=== PATIENT | male | born 1970 | race Caucasian/White ===

== ENCOUNTER → 2018-06-26 09:18 | Outpatient (CLI) | payer BC, SELFPAY ==
[2018-06-26 09:28] LABS: Basophils % 0.4 % (0.1-2.0); Eosinophils # 0.1 K/mm3 (0.0-0.4); Eosinophils % 5.6 % (0.1-12.0); Hematocrit 40.2 % (42.0-52.0); Hemoglobin 13.1 g/dL (14.1-18.0); Lymphocytes # 0.4 K/mm3 (0.7-4.5); Mean Corpuscular HGB Conc 32.6 g/dL (31.8-35.4); Mean Corpuscular Volume 95.2 fl (80-94); Mean Platelet Volume 8.8 fl (7.4-10.4); Monocytes # 0.1 K/mm3 (0.1-1.0); Monocytes % 4.8 % (1.7-9.3); Neutrophils # 1.7 K/mm3 (1.8-7.8); Neutrophils % 71.1 % (37.0-80.0); Platelet Count 80 K/mm3 (142-424); Red Blood Count 4.22 M/mm3 (4.60-6.20); Red Cell Distribution Width 13.3 % (11.5-17.5); White Blood Count 2.4 K/mm3 (4.8-10.8)
[2018-06-26 11:06] LABS: Alanine Aminotransferase 15 U/L (12-78); Albumin Level 3.5 gm/dL (3.4-5.0); Albumin/Globulin Ratio 1.1 (1.1-1.8); Alkaline Phosphatase 106 U/L (46-116); Anion Gap 14.1 mEq/L (5-15); Aspartate Amino Transferase 24 U/L (15-37); Bilirubin,Total 1.1 mg/dL (0.2-1.0); Blood Urea Nitrogen 8 mg/dL (7-18); Calcium 8.5 mg/dL (8.5-10.1); Carbon Dioxide 27 mmol/L (21.0-32.0); Chloride 106 mmol/L (98-107); Creatinine,Serum 1.02 mg/dL (0.70-1.30); Estimated Glomerular Filt Rate 78 ml/min (>60); GFR (African American) 94 ML/MIN (>60); Globulin 3.1 gm/dl (1.3-3.2); Glucose 84 mg/dL (74-106); Potassium 4.1 mmoL/L (3.5-5.1); Sodium 143 mmol/L (136-145); Total Protein,Serum 6.6 gm/dL (6.4-8.2)
== END ==
PROVIDERS: Visit Provider Internal Medicine Medical Oncology
DX: D72.819 Decreased white blood cell count, unspecified (principal)
CPT/HCPCS: 36415; 80053; 85025

== ENCOUNTER → 2018-07-08 09:28 | Outpatient (CLI) | payer BC, SELFPAY ==
--- NOTE | 2018-07-08 09:31 | US_ITS ---
US abdomen complete HISTORY: ITS.REASON: liver cirrhosis,low wbc ORDERING PHYSICIAN: Nayeli Roberts MD PATIENT AGE: 47 years COMPARISON: None FINDINGS: PANCREAS:Unremarkable. No obvious mass or abnormal fluid collection. No ductal dilatation LIVER:There is irregularity of the liver surface with coarse hepatic echogenicity consistent with cirrhosis. Portal vein is upper limits of normal at 13 mm. There is appropriate direction of blood flow within the portal vein. RIGHT KIDNEY:Unremarkable. Normal size and echogenicity. No hydronephrosis LEFT KIDNEY:Unremarkable. No hydronephrosis. Normal size and echogenicity. GALLBLADDER:There are multiple gallstones present. No gallbladder wall thickening, pericholecystic fluid, or biliary dilatation. Common bile duct is 6 mm which is upper limits of normal. AORTA:No evidence of aneurysmal dilatation. SPLEEN:The spleen is enlarged at 17 cm ASCITES:None demonstrated. IMPRESSION: 1. Cholelithiasis. 2. Cirrhosis with splenomegaly
== END ==
PROVIDERS: PCP Emergency Medicine; Visit Provider Internal Medicine Medical Oncology
DX: K74.60 Unspecified cirrhosis of liver (principal)
CPT/HCPCS: 76700

== ENCOUNTER 2022-08-16 16:41 | Emergency (ER) | payer BC, SELFPAY ==
[2022-08-16 16:42] VITALS: BP 135/73; PULSE 74; RESP 17; TEMP 36.9; O2SAT 96; BMI 28.7
--- NOTE | 2022-08-16 16:54 | PC.NURSE ---
Patient's state guardian is Brandy Lares [phone]
--- NOTE | 2022-08-16 17:46 | PC.NURSE ---
PT AMBULATED UP TO BR
--- NOTE | 2022-08-16 17:57 | CT_ITS ---
PROCEDURE INFORMATION: Exam: CT Lumbar Spine With Contrast Exam date and time: 08/16/2022 7:15 PM Age: 51 years old Clinical indication: Low back pain TECHNIQUE: Imaging protocol: Computed tomography of the lumbar spine with contrast. Radiation optimization: All CT scans at this facility use at least one of these dose optimization techniques: automated exposure control; mA and/or kV adjustment per patient size (includes targeted exams where dose is matched to clinical indication); or iterative reconstruction. Contrast material: ISOVUE; Contrast volume: 75 ml; Contrast route: IV; Other protocol: This patient has received [address] and 0 known cardiac nuclear medicine studies in the 12 months prior to the current study. COMPARISON: No relevant prior studies available. FINDINGS: Bones/joints: Moderate multilevel degenerative disc changes and facet arthropathy noted throughout the lumbar spine. Disc bulge and uncovertebral spurring produces moderate central canal and bilateral neural foraminal narrowing at the lumbosacral junction. No vertebral body compression or acute fracture evident. Soft tissues: Unremarkable. IMPRESSION: Degenerative changes of the lumbar spine as described. No evidence of acute injury.
--- NOTE | 2022-08-16 17:57 | CT_ITS ---
PROCEDURE INFORMATION: Exam: CT Abdomen And Pelvis Without Contrast Exam date and time: 08/16/2022 7:19 PM Age: 51 years old Clinical indication: Abdominal pain; Other: Kidney area; Additional info: Kidneys hurt TECHNIQUE: Imaging protocol: Computed tomography of the abdomen and pelvis without contrast. Radiation optimization: All CT scans at this facility use at least one of these dose optimization techniques: automated exposure control; mA and/or kV adjustment per patient size (includes targeted exams where dose is matched to clinical indication); or iterative reconstruction. Other protocol: This patient has received [address] and 0 known cardiac nuclear medicine studies in the 12 months prior to the current study. COMPARISON: CT LUMBAR SPINE W CON 08/16/2022 7:15 PM FINDINGS: Liver: There is a diffusely sclerotic appearance of the liver. No focal hepatic abnormality seen. Gallbladder and bile ducts: Normal. No calcified stones. No ductal dilation. Pancreas: Normal. No ductal dilation. Spleen: The spleen is enlarged, measuring 18.5 cm in greatest diameter. Adrenal glands: Normal. No mass. Kidneys and ureters: Normal. No hydronephrosis. Stomach and bowel: Unremarkable. No obstruction. No mucosal thickening. Appendix: No evidence of appendicitis. Intraperitoneal space: Unremarkable. No free air. No significant fluid collection. Vasculature: Unremarkable. No abdominal aortic aneurysm. Lymph nodes: Unremarkable. No enlarged lymph nodes. Urinary bladder: Unremarkable as visualized. Reproductive: Unremarkable as visualized. Bones/joints: Moderate degenerative changes noted in the lumbosacral spine producing moderate to severe narrowing of the bilateral L5 neural exit foramina. Mild degenerative changes noted at the other disc levels in the lower spine Soft tissues: Unremarkable. IMPRESSION: Cirrhotic appearance of the liver with significant splenomegaly. No ascites. Other incidental findings as noted. No acute abnormality evident in the abdomen or pelvis.
--- NOTE | 2022-08-16 18:00 | HMH.EDGENADL ---
Discharge Plan Disposition Patient Disposition: Home, Self-Care Condition: Good Prescriptions Prescriptions: No Action lactulose [Constulose] 10 gram/15 mL solution 10 g PO DAILY bupropion HCl [Wellbutrin XL] 150 mg tablet extended release 24 hr 150 mg PO DAILY ferrous sulfate 325 mg (65 mg iron) tablet 325 mg PO DAILY levothyroxine 100 mcg capsule 100 mcg PO DAILY lithium carbonate 300 mg capsule 300 mg PO TID omeprazole 20 mg capsule,delayed release(DR/EC) 20 mg PO DAILY paliperidone [Invega] 3 mg tablet extended release 24hr 3 mg PO DAILY risperidone [Risperdal] 3 mg tablet 3 mg PO DAILY sertraline [Zoloft] 100 mg tablet 100 mg PO DAILY famotidine 20 mg tablet 20 mg PO DAILY Activity Restrictions/Add. Instructions Additional Instructions/Restrictions: Tylenol 3 take-home pack as needed for pain. Additional instructions for BACK PAIN: See your physician as soon as possible for further evaluation. Return immediately if back pain becomes intolerable, or if fever, numbness or weakness of your legs, loss of control of your bowels or bladder. Clinical Impressions Clinical Impression: Low back pain Instructions Patient Instructions: DI for Low Back Pain Discharge ED Provider: Allan Sanchez General Adult HPI General Chief complaint: Back Pain/Injury Stated complaint: LBP Time Seen by Provider: 08/16/22 17:49 Mode of Arrival: EMS Source of Information: Patient and EMS Limitations: No Limitations Description of Symptoms (Recalled from ER Triage Doc. by RN): 51 M presents via EMS from [facility] for complaints of non-traumatic low back pain that radiates down both of his lower extremities. Patient denies loss of bowel and bladder. Denies painful urination, fever, chills. History of Present Illness HPI narrative: The patient is brought in by ambulance from [facility]. He complains of a 1 week history of lower back pain. He points to the lower lumbar paraspinous area bilaterally states in my kidneys . Denies injury or falls. States that his legs feel weak, states that he tripped going up the stairs. However denies numbness to the groin or legs and no loss of bowel or bladder control. Denies urinary symptoms such as dysuria or frequency. Denies fever. Denies URI symptoms. Denies vomiting or diarrhea. Denies previous back problems. States he has a history of cirrhosis. Related Data Home Medications Medication Instructions Recorded Confirmed bupropion HCl 150 mg 24 hr tablet, 150 mg PO DAILY Mood 06/26/18 08/16/22 extended release (Wellbutrin XL) ferrous sulfate 325 mg (65 mg 325 mg PO DAILY Supplement 06/26/18 08/16/22 iron) tablet lactulose 10 gram/15 mL oral 10 g PO DAILY Liver 06/26/18 08/16/22 solution (Constulose) levothyroxine 100 mcg capsule 100 mcg PO DAILY Hypothyroidism 06/26/18 08/16/22 lithium carbonate 300 mg capsule 300 mg PO TID Mood 06/26/18 08/16/22 omeprazole 20 mg capsule,delayed 20 mg PO DAILY GERD 06/26/18 08/16/22 release paliperidone 3 mg tablet,extended 3 mg PO DAILY Mood 06/26/18 08/16/22 release 24 hr (Invega) risperidone 3 mg tablet (Risperdal) 3 mg PO DAILY Mood 06/26/18 08/16/22 sertraline 100 mg tablet (Zoloft) 100 mg PO DAILY Mood 06/26/18 08/16/22 famotidine 20 mg tablet 20 mg PO DAILY GERD 08/16/22 08/16/22 Allergies Allergy/AdvReac Type Severity Reaction Status Date / Time Penicillins Allergy Mild Verified 05/05/21 09:00 [facility] Disclaimer: The information contained in this section may have been updated after the patient was seen, as this information can be updated by other users. Social History Smoking Status: Never smoker alcohol intake: former substance use type: denies use current occupational status: previously employed Travel in the last 8 weeks: None housing: assisted living facility ROS Obtained: Yes Systems reviewed as appropriate & no
[2022-08-16 18:08] LABS: Microscopic, Urine URINE MICROSCOPIC (MICROSCOPIC)
[2022-08-16 18:13] LABS: Appearance,Urine CLEAR (Clear); Bilirubin,Urine Negative (Negative); Blood, Urine Negative (Negative); Color,Urine YELLOW (Yellow); Glucose,Urine (UA) Negative (Negative); Ketones,Urine Negative (Negative); Leukocyte Esterase,Urine Negative (Negative); Nitrate,Urine Negative (Negative); Protein,Urine Negative (Negative); Specific Gravity, Urine 1.015 (1.005-1.030)
[2022-08-16 18:33] LABS: Eosinophils # 0.1 K/mm3 (0.0-0.4); Eosinophils % 4.5 % (0.1-12.0); Hematocrit 37.1 % (42.0-52.0); Hemoglobin 12.6 g/dL (14.1-18.0); Lymphocytes # 0.3 K/mm3 (0.7-4.5); Lymphocytes % 10.5 % (10-50); Mean Corpuscular HGB Conc 33.9 g/dL (31.8-35.4); Mean Corpuscular Hemoglobin 32.6 pg (27.0-31.2); Mean Corpuscular Volume 96.2 fl (80-94); Mean Platelet Volume 9.3 fl (7.4-10.4); Monocytes # 0.2 K/mm3 (0.1-1.0); Monocytes % 6.1 % (1.7-9.3); Neutrophils % 77.9 % (37.0-80.0); Platelet Count 72 K/mm3 (142-424); Red Blood Count 3.86 M/mm3 (4.60-6.20); Red Cell Distribution Width 14.4 % (11.5-17.5); White Blood Count 2.5 K/mm3 (4.8-10.8)
[2022-08-16 18:34] LABS: Bacteria,Urine Trace /lpf; Squamous Epithelial Cell,Urine Occasional #/hpf (0-5); WBC,Urine Occasional #/hpf (0-3)
[2022-08-16 18:44] LABS: INR 1.16 (0.9-1.1); Prothrombin Time 12.4 seconds (10.1-12.5)
[2022-08-16 18:45] LABS: Chloride 109 mmol/L (98-107)
[2022-08-16 18:46] LABS: Potassium 3.7 mmoL/L (3.5-5.1); Sodium 138 mmol/L (136-145)
[2022-08-16 18:48] LABS: Alanine Aminotransferase 22 U/L (12-78); Albumin Level 3.3 g/dl (3.5-5.0); Alkaline Phosphatase 103 U/L (38-126); Aspartate Amino Transferase 71 U/L (17-59); Bilirubin,Total 0.9 mg/dl (0.2-1.3); Blood Urea Nitrogen 8 mg/dl (9-20); Creatinine Clearance Estimated 110 mL/min (50-200); Estimated Glomerular Filt Rate 78 ml/min (>60); GFR (African American) 95 ML/MIN (>60)
[2022-08-16 18:49] LABS: Albumin/Globulin Ratio 1.2 (1.1-1.8); Anion Gap 9.7 mEq/L (5-15); Calcium 7.9 mg/dl (8.4-10.2); Carbon Dioxide 23 mmol/L (22.0-30.0); Globulin 2.8 g/dL (1.3-3.2); Glucose 87 mg/dl (74-100); Total Protein,Serum 6.1 g/dl (6.3-8.2)
[2022-08-16 18:54] LABS: C-Reactive Protein 0.4 mg/L (0-4)
[2022-08-16 19:01] LABS: Erythrocyte Sedimentation Rate 17 mm/hr (0-20)
[2022-08-16 19:02] VITALS: BP 134/72; PULSE 76; O2SAT 95
[2022-08-16 19:12] LABS: Coronavirus 19, PCR Not Detected (NotDetected); Influenza A, PCR Not Detected (NotDetected); Influenza B, PCR Not Detected (NotDetected)
--- NOTE | 2022-08-16 19:54 | PC.NURSE ---
Pt ambulated independently to the bathroom at this time
--- NOTE | 2022-08-16 20:52 | PC.NURSE ---
sil called for an update. Pt not d/c at this time
[2022-08-16 22:21] VITALS: BP 126/70; PULSE 71; RESP 17; TEMP 36.6; O2SAT 96
--- NOTE | 2022-08-16 22:22 | PC.NURSE ---
sil called for pickup
== END 2022-08-16 22:55 | disposition home or self-care (01) ==
PROVIDERS: Emergency Provider Emergency Medicine
DX: M54.50 Low back pain, unspecified (principal); Z20.822 Contact with and (suspected) exposure to COVID-19
CPT/HCPCS: 72132; 74176; 80053; 81001; 85025; 85610; 85651; 86140; 99285; C9803; Q9967; U0003; U0005

== ENCOUNTER 2022-12-30 14:34 | Observation (INO) | payer BC, SELFPAY ==
[2022-12-30 14:34] VITALS: BP 142/77; PULSE 100; RESP 18; TEMP 37.6; O2SAT 98; BMI 26.5
--- NOTE | 2022-12-30 14:34 | PC.NURSE ---
DR GENAO AT BEDSIDE
--- NOTE | 2022-12-30 14:36 | XR_ITS ---
PROCEDURE INFORMATION: Exam: XR Chest Exam date and time: 12/30/2022 2:39 PM Age: 52 years old Clinical indication: Dyspnea; Additional info: Dyspnea, covid+, cp TECHNIQUE: Imaging protocol: Radiologic exam of the chest. Views: 1 view. COMPARISON: None FINDINGS: Lungs: Unremarkable. No consolidation. Pleural spaces: Unremarkable. No pleural effusion. No pneumothorax. Heart/Mediastinum: Unremarkable. No cardiomegaly. Bones/joints: Unremarkable. IMPRESSION: No acute findings.
--- NOTE | 2022-12-30 14:40 | HMH.EDWEAK ---
Discharge Plan Disposition Patient Disposition: Admitted Chief Complaint: Weakness Prescriptions Prescriptions: No Action lactulose [Constulose] 10 gram/15 mL solution 10 g PO DAILY bupropion HCl [Wellbutrin XL] 150 mg tablet extended release 24 hr 150 mg PO DAILY ferrous sulfate 325 mg (65 mg iron) tablet 325 mg PO DAILY levothyroxine 100 mcg capsule 100 mcg PO DAILY lithium carbonate 300 mg capsule 300 mg PO TID omeprazole 20 mg capsule,delayed release(DR/EC) 20 mg PO DAILY paliperidone [Invega] 3 mg tablet extended release 24hr 3 mg PO DAILY risperidone [Risperdal] 3 mg tablet 3 mg PO DAILY sertraline [Zoloft] 100 mg tablet 100 mg PO DAILY famotidine 20 mg tablet 20 mg PO DAILY Referrals Follow up/Referrals: Provider,Referral, MD [Primary Care Provider] - See instructions Clinical Impressions Clinical Impression: Weakness generalized, Abnormal finding on liver function, Chronic liver disease and cirrhosis Discharge ED Provider: Eufemia Phipps HPI General Chief complaint: Weakness Stated complaint: CAN'T WALK Time Seen by Provider: 12/30/22 14:36 Mode of Arrival: EMS Source of Information: Patient History of Present Illness HPI Narrative: The patient presents to the emergency department via ambulance complaining of a 3-week history of progressively worsening weakness. He states that over the last 2 days the weakness has gotten particularly bad. He denies any vomiting, nausea, diarrhea, fever. He also denies cough. He states that he has cirrhosis. Related Data Home Medications Medication Instructions Recorded Confirmed bupropion HCl 150 mg 24 hr tablet, 150 mg PO DAILY Mood 06/26/18 12/30/22 extended release (Wellbutrin XL) ferrous sulfate 325 mg (65 mg 325 mg PO DAILY Supplement 06/26/18 12/30/22 iron) tablet lactulose 10 gram/15 mL oral 10 g PO DAILY Liver 06/26/18 12/30/22 solution (Constulose) levothyroxine 100 mcg capsule 100 mcg PO DAILY Hypothyroidism 06/26/18 12/30/22 lithium carbonate 300 mg capsule 300 mg PO TID Mood 06/26/18 12/30/22 omeprazole 20 mg capsule,delayed 20 mg PO DAILY GERD 06/26/18 08/16/22 release paliperidone 3 mg tablet,extended 3 mg PO DAILY Mood 12/27/18 07/02/23 release 24 hr (Invega) risperidone 3 mg tablet (Risperdal) 3 mg PO DAILY Mood 06/26/18 12/30/22 sertraline 100 mg tablet (Zoloft) 100 mg PO DAILY Mood 06/26/18 12/30/22 famotidine 20 mg tablet 20 mg PO DAILY GERD 08/16/22 12/30/22 Allergies Allergy/AdvReac Type Severity Reaction Status Date / Time Penicillins Allergy Mild Verified 05/05/21 09:00 [facility] Disclaimer: The information contained in this section may have been updated after the patient was seen, as this information can be updated by other users. Social History Smoking Status: Never smoker alcohol intake: former substance use type: denies use current occupational status: previously employed Travel in the last 8 weeks: None housing: assisted living facility ROS Obtained: Yes All systems reviewed & no additional complaints except as documented Physical Exam General General appearance: alert and in no apparent distress Head Head exam: atraumatic Eye Eye exam: Present normal appearance; Absent scleral icterus ENT ENT exam: Present normal exam and normal oropharynx Neck Neck exam: Present normal inspection and full ROM; Absent tenderness or meningismus Chest Chest inspection: Present normal inspection and symmetric chest wall rise; Absent tenderness Respiratory Respiratory exam: Present normal lung sounds bilaterally; Absent respiratory distress or accessory muscle use Cardiovascular Cardiovascular exam: Present regular rate, normal rhythm and normal heart sounds Abdominal Exam Abdominal exam: Present soft and normal bowel sounds; Absent distention, tenderness, heel tap sign, Rose's sign, Rovsing's sign, tenderness at McBurney's
[2022-12-30 14:49] LABS: Microscopic, Urine URINE MICROSCOPIC (MICROSCOPIC)
[2022-12-30 14:51] LABS: Appearance,Urine CLEAR (Clear); Blood, Urine 3+ (Negative); Color,Urine YELLOW (Yellow); Glucose,Urine (UA) Negative (Negative); Ketones,Urine 3+ (Negative); Leukocyte Esterase,Urine Negative (Negative); Nitrate,Urine Negative (Negative); Protein,Urine 1+ (Negative); Specific Gravity, Urine >= 1.030 (1.005-1.030)
[2022-12-30 14:51] LABS: Basophils % 0.1 % (0.1-2.0); Eosinophils # 0.1 K/mm3 (0.0-0.4); Hematocrit 35.7 % (42.0-52.0); Hemoglobin 11.4 g/dL (14.1-18.0); Lymphocytes # 0.2 K/mm3 (0.7-4.5); Lymphocytes % 4.2 % (10-50); Mean Corpuscular Hemoglobin 31.4 pg (27.0-31.2); Mean Platelet Volume 9.1 fl (7.4-10.4); Monocytes # 0.1 K/mm3 (0.1-1.0); Monocytes % 2.3 % (1.7-9.3); Neutrophils # 4.4 K/mm3 (1.8-7.8); Neutrophils % 91.4 % (37.0-80.0); Platelet Count 98 K/mm3 (142-424); Red Blood Count 3.64 M/mm3 (4.60-6.20); Red Cell Distribution Width 14.4 % (11.5-17.5); White Blood Count 4.8 K/mm3 (4.8-10.8)
[2022-12-30 14:52] LABS: Chloride 99 mmol/L (98-107); Sodium 134 mmol/L (136-145)
[2022-12-30 14:53] LABS: Potassium 4.1 mmoL/L (3.5-5.1)
[2022-12-30 14:55] LABS: Alanine Aminotransferase 221 U/L (12-78); Albumin/Globulin Ratio 1.1 (1.1-1.8); Alkaline Phosphatase 87 U/L (38-126); Anion Gap 18.1 mEq/L (5-15); Bilirubin,Total 1.5 mg/dl (0.2-1.3); Blood Urea Nitrogen 12 mg/dl (9-20); Carbon Dioxide 21 mmol/L (22.0-30.0); Creatinine Clearance Estimated 167 mL/min (50-200); Estimated Glomerular Filt Rate 140 ml/min (>60); GFR (African American) 170 ML/MIN (>60); Globulin 2.8 g/dL (1.3-3.2); Total Protein,Serum 5.8 g/dl (6.3-8.2)
[2022-12-30 14:56] LABS: Calcium 8.5 mg/dl (8.4-10.2); Glucose 91 mg/dl (74-100)
[2022-12-30 14:57] LABS: Ammonia 38 umol/L (9-30)
[2022-12-30 14:57] LABS: MANUAL DIFFERENTIAL MANUAL DIFFERENTIAL (MANUAL DIFF)
[2022-12-30 14:57] LABS: Bilirubin,Urine 3+ (Negative)
[2022-12-30 15:04] LABS: Bacteria,Urine Trace /lpf; Coarse Granular Casts,Urine Occasional #/lpf (0); WBC,Urine Occasional #/hpf (0-3)
[2022-12-30 15:18] LABS: Eosinophils % 2 % (0-3); Lymphocytes % 3 % (10-50); Neutrophils % 95 % (42-76); Total Cells Counted 100
[2022-12-30 15:19] LABS: Platelet Estimate Marked Decrease; RBC Morphology Normal
[2022-12-30 15:21] LABS: Aspartate Amino Transferase 3046 U/L (17-59)
[2022-12-30 15:59] LABS: Lactic Acid 3.2 mmol/L (0.7-2.1)
--- NOTE | 2022-12-30 16:08 | PC.NURSE ---
PT PROVIDED DRINK AT THIS TIME
--- NOTE | 2022-12-30 17:29 | PC.NURSE ---
ATTEMPTED TO AMBULATE PT, DID NOT PARTICIPATE. NOTIFIED
--- NOTE | 2022-12-30 18:01 | INFXCTL.NOTE ---
DR GENAO SPEAKING WITH DR ORELLANA FOR ADMISSION
[2022-12-30 18:11] LABS: Coronavirus 19, PCR Not Detected (NotDetected); Influenza A, PCR Not Detected (NotDetected); Influenza B, PCR Not Detected (NotDetected)
--- NOTE | 2022-12-30 19:28 | PC.NURSE ---
PATIENT ADMITTED TO [facility] TO SERVICE OF HOSPITALIST WITH ADMITTING DX OF DECREASED MOBILITY AND ELEVATED LIVER ENZYMES.
[2022-12-30 19:39] LABS: Reflex Lactic Add Lactic Reflex
[2022-12-30 20:00] VITALS: BP 146/65; PULSE 84; RESP 18; TEMP 37.6; O2SAT 94; BMI 27.3
--- NOTE | 2022-12-30 20:04 | PC.NURSE ---
PT ARRIVED TO FLOOR AT THIS TIME
[2022-12-30 20:06] VITALS: BP 146/65; PULSE 94; RESP 18; TEMP 37.2; O2SAT 96
--- NOTE | 2022-12-30 21:32 | PC.NURSE ---
right upper back left upper back left shoulder left thigh left hip
[2022-12-30 21:43] LABS: INR 1.08 (0.9-1.1); Prothrombin Time 11.6 seconds (10.1-12.5)
[2022-12-30 21:44] LABS: Amphetamine/Metha Screen,Urine Negative ng/ml (<1000); Barbiturates Screen,Urine Negative ng/ml (<200)
[2022-12-30 21:45] LABS: Benzodiazepines Screen,Urine Negative ng/ml (<200); Cannabinoid Screen,Urine Negative ng/ml (<50)
[2022-12-30 21:46] LABS: Cocaine Screen,Urine Negative ng/ml (<300)
[2022-12-30 21:47] LABS: Methadone Screen,Urine Negative ng/ml (<300); Opiate Screen,Urine Negative ng/ml (<300)
[2022-12-30 21:48] LABS: Phencyclidine Screen,Urine Negative ng/ml (<25)
[2022-12-30 22:04] LABS: Reflex Lactic (2 hrs) Add Lactic Reflex
--- NOTE | 2022-12-30 22:29 | EXP.HP ---
History of Present Illness *Admission Date: 12/30/22 *Reason for visit:: generalized weakness *History of present illness: This is a 52 yo male, with PMHx of cirrhosis and schizophrenia, hypothyroidism who is a resident of assisted living facility [facility], the patient presented to the emergency department via ambulance complaining of a 3-week history of progressively worsening weakness. He states that over the last 2 days the weakness has worsen. He denies any vomiting, nausea, diarrhea, fever. He also denies cough. He states that he has cirrhosis. He also stated he is being fallen at the facility. Patient with multiple bruises. At the ER finding were consistent with abnormal liver function. chest X-ray negative. Discussed with the ER. Agreed for mission for further work-up and management. [facility] Disclaimer: The information contained in this section may have been updated after the patient was seen, as this information can be updated by other users. Medical History (Updated 12/30/22 @ 22:49 by Justo Maurer APRN) Cirrhosis Hypothyroid Social History Smoking Status: Never smoker alcohol intake: former substance use type: denies use current occupational status: previously employed Travel in the last 8 weeks: None housing: assisted living facility Review of Systems Review of Systems Review of systems:: pertinent systems reviewed and negative unless documented below Meds Home Medications and Allergies Home Medications Medication Instructions Recorded Confirmed Type bupropion HCl 150 mg 24 hr tablet, 150 mg PO DAILY Mood 06/26/18 12/30/22 History extended release (Wellbutrin XL) ferrous sulfate 325 mg (65 mg 325 mg PO DAILY Supplement 06/26/18 12/30/22 History iron) tablet lactulose 10 gram/15 mL oral 20 g PO DAILYP PRN Constipation 06/26/18 12/31/22 History solution (Constulose) lithium carbonate 300 mg capsule 300 mg PO BID Mood 06/26/18 12/31/22 History paliperidone 3 mg tablet,extended 3 mg PO DAILY Mood 06/26/18 12/30/22 History release 24 hr (Invega) risperidone 3 mg tablet (Risperdal) 6 mg PO HS Mood 06/26/18 12/31/22 History sertraline 100 mg tablet (Zoloft) 200 mg PO HS Mood 06/26/18 12/31/22 History famotidine 20 mg tablet 20 mg PO HS Acid Reflux 08/16/22 12/31/22 History levothyroxine 100 mcg tablet 100 mcg PO DAILY THYROID 12/31/22 12/31/22 History New Prescriptions to Start Prescriptions: Allergies Allergy/AdvReac Type Severity Reaction Status Date / Time Penicillins Allergy Mild Verified 05/05/21 09:00 Exam Data for Last 24 hours Vital signs and Labs for Last 24 Hours: Temp Pulse Resp BP Pulse Ox 98.9 F 94 H 18 146/65 H 94 L 12/30/22 20:06 12/30/22 20:06 12/30/22 20:06 12/30/22 20:06 12/30/22 20:00 Laboratory Results - last 24 hr 12/30/22 14:30: WBC 4.8, RBC 3.64 L, Hgb 11.4 L, Hct 35.7 L, MCV 98.0 H, MCH 31.4 H, MCHC 32.0, RDW 14.4, Plt Count 98 L, MPV 9.1, Neut % (Auto) 91.4 H, Lymph % (Auto) 4.2 L, Sunflower % (Auto) 2.3, Eos % (Auto) 2.0, Baso % (Auto) 0.1, Neut # (Auto) 4.4, Lymph # (Auto) 0.2 L, Sunflower # (Auto) 0.1, Eos # (Auto) 0.1, Baso # (Auto) 0.0, Total Counted 100, Neutrophils % (Manual) 95 H, Lymphocytes % (Manual) 3 L, Eosinophils % (Manual) 2, Platelet Estimate Marked decrease, RBC Morphology Normal, PT 11.6, INR 1.08, Sodium 134 L, Potassium 4.1, Chloride 99, Carbon Dioxide 21 L, Anion Gap 18.1 H, BUN 12, Creatinine 0.60 L, Estimated Creat Clear 167, Estimated GFR 140, Est GFR ( Amer) 170, Glucose 91, Calcium 8.5, Total Bilirubin 1.5 H, AST 3046 H*, ALT 221 H, Alkaline Phosphatase 87, Total Protein 5.8 L, Albumin 3.0 L, Globulin 2.8, Albumin/Globulin Ratio 1.1, SARS-CoV-2 (PCR) Not detected, Influenza A Untype (PCR) Not detected, Influenza Type B (PCR) Not detected 07/02/23 14:41: Ammonia 38 H 12/30/22 14:42: Urine Color Yellow, Urine Appearance Clear, Urine pH 6.0, Ur Specific [place] >= 1.030, Urine Protein 1+, Urine Glucose (U
[2022-12-30 23:14] LABS: Lactic Acid Follow up (RFLX 2) 2.6 mmol/L (0.7-2.1)
[2022-12-30 23:55] VITALS: BP 142/70; PULSE 94; RESP 18; TEMP 37.3; O2SAT 98
[2022-12-31 04:00] VITALS: BP 130/62; PULSE 96; RESP 18; TEMP 37.1; O2SAT 96; BMI 27.3
[2022-12-31 06:13] LABS: Alanine Aminotransferase 202 U/L (12-78); Albumin Level 2.6 g/dl (3.5-5.0); Alkaline Phosphatase 77 U/L (38-126); Anion Gap 11.7 mEq/L (5-15); Bilirubin,Total 1.4 mg/dl (0.2-1.3); Blood Urea Nitrogen 11 mg/dl (9-20); Carbon Dioxide 26 mmol/L (22.0-30.0); Chloride 98 mmol/L (98-107); Chol/HDL Ratio 4.6 (1-3.5); Cholesterol 115 mg/dl (140-200); Creatinine Clearance Estimated 173 mL/min (50-200); Estimated Glomerular Filt Rate 140 ml/min (>60); GFR (African American) 170 ML/MIN (>60); Globulin 2.6 g/dL (1.3-3.2); Glucose 85 mg/dl (74-100); HDL Cholesterol 25 mg/dl (40-60); Magnesium 1.7 mg/dl (1.6-2.3); Potassium 3.7 mmoL/L (3.5-5.1); Sodium 132 mmol/L (136-145); Total Protein,Serum 5.2 g/dl (6.3-8.2); Triglycerides 108 mg/dl (30-150); VLDL Cholesterol 22 mg/dL (0-40)
[2022-12-31 06:14] LABS: INR 1.11 (0.9-1.1); Prothrombin Time 11.9 seconds (10.1-12.5)
[2022-12-31 06:24] LABS: Direct LDL Cholesterol 71.17 mg/dL (100-129)
[2022-12-31 06:55] LABS: Basophils % 0.1 % (0.1-2.0); Eosinophils # 0.1 K/mm3 (0.0-0.4); Hematocrit 33.9 % (42.0-52.0); Hemoglobin 10.8 g/dL (14.1-18.0); Lymphocytes # 0.2 K/mm3 (0.7-4.5); Lymphocytes % 5.1 % (10-50); Mean Corpuscular HGB Conc 31.8 g/dL (31.8-35.4); Mean Corpuscular Hemoglobin 31.4 pg (27.0-31.2); Mean Corpuscular Volume 98.6 fl (80-94); Mean Platelet Volume 9.5 fl (7.4-10.4); Monocytes # 0.1 K/mm3 (0.1-1.0); Monocytes % 2.6 % (1.7-9.3); Neutrophils % 88.2 % (37.0-80.0); Platelet Count 78 K/mm3 (142-424); Red Blood Count 3.44 M/mm3 (4.60-6.20); Red Cell Distribution Width 14.4 % (11.5-17.5); White Blood Count 3.4 K/mm3 (4.8-10.8)
[2022-12-31 06:56] LABS: MANUAL DIFFERENTIAL MANUAL DIFFERENTIAL (MANUAL DIFF)
[2022-12-31 06:59] LABS: Aspartate Amino Transferase 2354 U/L (17-59)
--- NOTE | 2022-12-31 07:13 | US_ITS ---
FINAL REPORT CLINICAL HISTORY: weakness, liver eval, cirrhosis COMPARISON: None FINDINGS: Sonographic images of the right upper quadrant were obtained. The pancreas is partially obscured. The liver has a heterogeneous echotexture consistent with history of cirrhosis. No evidence of hepatic mass. There are gallstones in the gallbladder. There is no evidence of biliary ductal dilatation.The common duct measures 4mm. Limited images of the right kidney are unremarkable. IMPRESSION: Cirrhosis. Gallstones. Reviewed, Interpreted and Dictated by Leon Aly III, MD Transcribed by Radha Kemp Authenticated and [facility]
--- NOTE | 2022-12-31 07:31 | P.CONPHA_ITS ---
Pharmacy Intervention Comments: MEDICATION RECONCILIATION COMPLETED ON PATIENT USING MAR FROM [facility]. -SARITA CURRAN, HENNAD
--- NOTE | 2022-12-31 07:31 | HMH.PHAINT1 ---
Pharmacy Intervention Comments: MEDICATION RECONCILIATION COMPLETED ON PATIENT USING MAR FROM [facility]. -SARITA CURRAN, HENNAD
[2022-12-31 08:00] VITALS: BP 147/75; PULSE 95; RESP 16; TEMP 37.4; O2SAT 96
[2022-12-31 08:08] LABS: Lymphocytes % 4 % (10-50); Monocytes % 2 % (2-9); Neutrophils % 94 % (42-76); Platelet Estimate Moderate Decrease; RBC Morphology Normal; Total Cells Counted 100
--- NOTE | 2022-12-31 09:29 | SW/DCPLANNER ---
Addendum entered by [facility] 01/03/23 11:09: Patient will discharge to [facility] level of care today. Addendum entered by [facility] 01/02/23 15:24: Rad[facility]/ [facility] stated that she can accept this patient tomorrow [facility] level of care. I will update Imani clemons/ Eul[place], [facility] and . Addendum entered by [facility] 01/02/23 12:29: Updated facilities list for this patient has been faxed to Imani Esteban ([email or web address]). Addendum entered by [facility] 01/02/23 11:32: Patient information is currently being reviewed at the following facilities: [facility], [facility] and [facility]. Addendum entered by [facility] 01/02/23 11:10: Imani Esteban ([phone]) has confirmed that information can be faxed to [facility] location. Addendum entered by [facility] 01/02/23 11:00: [facility] is not able to accept this patient. Patient information has also been faxed to [facility] in [facility]. Addendum entered by [facility] 01/02/23 09:00: Patient information has also been faxed to Ilya w/ [facility] in [facility]. Addendum entered by Tameka Alonzo RN 01/01/23 09:42: Per Dr. Bhardwaj, patient likely ready for discharge tomorrow. I attempted to contact Hiral @ [facility], but she is not in today due to holiday. No one available for admissions today. CM will reach out again tomorrow. Addendum entered by [facility] 12/31/22 14:10: Zaida w/ [facility] is not able to accept this patient. Patient information has been faxed to Hiral clemons/ [facility]. Addendum entered by [facility] 12/31/22 12:15: Ehmet is agreeable w/ patient information to be faxed to [facility]: information has been faxed at this time. Addendum entered by [facility] 12/31/22 11:50: PT/OT evaluations have been faxed to [facility]. Addendum entered by Vaishali Nevarez 12/31/22 11:23: PT/OT evaluated patient and recommended placement prior to returning to [facility]. [facility] Ashley clemons/ Eulalia ) has requested PT evaluation be faxed to him at [phone] prior to being able to approve for patient information being faxed to [facility] or [place]. Once evaluation is completed in computer I will fax to [facility]. Original Note: Patient currently resides at [facility]: I will continue to follow up with patient and Sofy clemons/ Ti during patient's stay. Discharge date is unknown at this time.
--- NOTE | 2022-12-31 11:27 | HMH.OTEV ---
OT Inpatient Evaluation Rehab OT IP Evaluation Start: 12/31/22 07:12 Freq: ONCE Status: Active Protocol: Document 12/31/22 10:22 LIZA (Rec: 12/31/22 11:24 LIZA [id number]) Rehab OT IP Assessment Subjective History This is a 52 yo male, with PMHx of cirrhosis and schizophrenia, hypothyroidism who is a resident of assisted living facility [facility], the patient presented to the emergency department via ambulance complaining of a 3- week history of progressively worsening weakness. He states that over the last 2 days the weakness has worsen. He denies any vomiting, nausea, diarrhea, fever. He also denies cough. He states that he has cirrhosis. He also stated he is being fallen at the facility. Patient with multiple bruises. At the ER finding were consistent with abnormal liver function. chest X-ray negative. Discussed with the ER. Agreed for mission for further work- up and management. Patient is a resident at [facility]. Ambulated independently. Completed all ADLs independently. Staff assist with medication. Subjective I can try to sit up. I don't feel good. Instructed Patient on proper hand and foot placement to complete supine->sit @ EOB requiring Mod A. Dominiquenet sat up @ EOB with SBA. Patient able to tolerate sitting up @ EOB <30 secs and requested to lay back down. Left Patient laying in bed with needs met at end of session. Objective Patient Orientation Name Upper Extremity Gross ROM WFL Bed Mobility bed mobility - supine/sit Assist Level Moderate x 1 (50% assist) Rehab OT IP prob,goals,plan Problems Date of Evaluation:
--- NOTE | 2022-12-31 11:46 | HMH.PTEV ---
Physical Therapy Evaluation Rehab PT IP Evaluation Start: 12/31/22 07:12 Freq: ONCE Status: Active Protocol: Document 12/31/22 10:00 PHOPATRICIA (Rec: 12/31/22 11:46 PHORPENNY [id number]) Subjective/History History History 52 yowm adm to [facility] with general weakness and cirrhosis , hx of Schizophrenia. He resides at a local personal [facility] where he is generally independent with all mobility without an AD. Subjective Subjective I don't know if I can stand up right now. Pt has no c/o pain, but reports weakness in B LE. Rehab PT IP Eval Objective Appearance Patient Behavior Appropriate Patient Orientation Person,Place Difficulty following instructions none Speech Pattern Clear Ambulation Patient Able to Ambulate No Balance Ability to Arise Able, uses arms to help Sitting Balance Steady, safe Standing Balance Unsteady Dynamic Sitting Balance Ability Good Dynamic Standing Balance Ability Poor Transfers Bed Transfer Ability Supervision/Stand by Chair Transfer Ability Minimal x 2 (25% assist) Sit to Stand Bed Transfer Ability Minimal x 2 (25% assist) Sit to Stand Chair Transfer Ability Minimal x 2 (25% assist) ROM All Extremities PT ROM Status WFL MMT All Extremities PT MMT WFL Rehab PT IP prob,goals,plan Problems Date of Evaluation: 12/31/22 PT IP Problems Bed Mobility,Transfers,Gait Rehab Potential Rehab Potential Good Plan PT Intervention Plan Bed Mobility,Transfers,Gait, Therapeutic Exercise PT Plan Frequency Daily Duration LOS Discharge Goals Bed Transfer Ability Independent Sit to Stand Chair Transfer Ability Minimal x 1 (25% assist) Ambulation Assistive Device Rolling Walker Ambulation Distance (feet) 20 Discharge Plan PT Discharge Plan Pt is currently most appropriate for rehab placement once medically stable for d/c. G -code Required No Eval Complexity Eval Charge Codes 75954 - High Complexity PHYSICIAN CERTIFICATION: I certify the specified therapy services for Luis Antonio Peñaloza are required, authorized, and reviewed every 30 days.
--- NOTE | 2022-12-31 14:42 | PC.NURSE ---
Courtesy Tech Note: pt was given a pepsi and a sandwich per nurse approval. pt is sitting up and eating with call light within reach. No requests voiced at this time.
[2022-12-31 14:48] VITALS: BMI 27.3
[2022-12-31 16:00] VITALS: BP 140/75; PULSE 101; RESP 18; TEMP 37.7; O2SAT 94
--- NOTE | 2022-12-31 16:41 | PC.NURSE ---
No acute changes or complaints noted. VS stable and patient remained on room air. No pain reported.
--- NOTE | 2022-12-31 18:26 | EXP.ACUTE.PN ---
Subjective *Date: 12/31/22 *Time: 18:34 Interval history: Patient pleasant on morning exam. Interactive and answering questions appropriately. States he is just been feeling weak. No chest pain or nausea. Stable on room air. Tolerating p.o. intake. Medical Exam Vital signs and Labs for Last 24 Hours: Vital Signs Temp Pulse Pulse Resp BP BP Pulse Ox 12/31/22 16:00 99.8 F H 101 H 18 140/75 94 L 12/31/22 08:00 99.4 F 95 H 16 147/75 H 96 12/31/22 04:00 98.8 F 96 H 18 130/62 96 12/30/22 23:55 99.1 F 94 H 18 142/70 H 98 12/30/22 20:00 99.7 F H 84 18 146/65 H 94 L 12/30/22 20:06 98.9 F 94 H 18 146/65 H Intake and Output 12/31/22 12/31/22 12/31/22 07:59 15:59 23:59 Intake Total 480 / 1440 480 / 1440 480 / 1440 Output Total 100 / 500 250 / 500 150 / 500 Balance 380 / 940 230 / 940 330 / 940 Intake: Intake, Oral Amount 480 / 1440 480 / 1440 480 / 1440 Output: Output, Urine Amount 100 / 500 250 / 500 150 / 500 Other: Weight 86.863 kg 86.86 kg Patient Weight 12/31/22 23:59 Weight 86.86 kg Laboratory Results - last 24 hr 12/30/22 14:30: PT 11.6, INR 1.08, SARS-CoV-2 (PCR) Not detected, Influenza A Untype (PCR) Not detected, Influenza Type B (PCR) Not detected 12/30/22 19:55: Lactate 3.0 H 12/30/22 21:20: Urine Opiates Screen Negative, Urine Methadone Screen Negative, Ur Barbituates Screen Negative, Ur Phencyclidine Scrn Negative, Ur Amphetamines Screen Negative, U Benzodiazepines Scrn Negative, Urine Cocaine Screen Negative, U Marijuana (THC) Screen Negative 12/30/22 22:35: Lactate 2.6 H 12/31/22 05:24: WBC 3.4 L D, RBC 3.44 L, Hgb 10.8 L, Hct 33.9 L, MCV 98.6 H, MCH 31.4 H, MCHC 31.8, RDW 14.4, Plt Count 78 L, MPV 9.5, Neut % (Auto) 88.2 H, Lymph % (Auto) 5.1 L, [place] % (Auto) 2.6, Eos % (Auto) 4.0, Baso % (Auto) 0.1, Neut # (Auto) 3.0, Lymph # (Auto) 0.2 L, [place] # (Auto) 0.1, Eos # (Auto) 0.1, Baso # (Auto) 0.0, Total Counted 100, Neutrophils % (Manual) 94 H, Lymphocytes % (Manual) 4 L, Monocytes % (Manual) 2, Platelet Estimate Moderate decrease, RBC Morphology Normal, PT 11.9, INR 1.11 H, Sodium 132 L, Potassium 3.7, Chloride 98, Carbon Dioxide 26, Anion Gap 11.7, BUN 11, Creatinine 0.60 L, Estimated Creat Clear 173, Estimated GFR 140, Est GFR ( Amer) 170, Glucose 85, Calcium 8.0 L, Magnesium 1.7, Total Bilirubin 1.4 H, AST 2354 H*, ALT 202 H, Alkaline Phosphatase 77, Total Protein 5.2 L, Albumin 2.6 L D, Globulin 2.6, Albumin/Globulin Ratio 1.0 L, Triglycerides 108, Cholesterol 115 L, LDL Cholesterol Direct 71.17 L, VLDL Cholesterol 22, HDL Cholesterol 25 L, Cholesterol/HDL Ratio 4.6 H I & O for Labs for Last 24 Hours: Intake & Output 12/28/22 12/29/22 12/30/22 12/31/22 23:59 23:59 23:59 23:59 Intake Total 1440 / 1440 Output Total 100 / 100 500 / 500 Balance -100 / -100 940 / 940 Weight 86.863 kg 86.86 kg Constitutional: Present no acute distress and chronically ill appearing Head: Present atraumatic and normocephalic Comment:: Poor dentition, numerous caries Neck: Present normal inspection Respiratory: Present normal respiratory effort; Absent rhonchi, wheezes or crackles Cardiac: Present Reg Rate and Rhythm GI: Present soft, distention and normal bowel sounds; Absent tenderness Extremities: Present normal inspection and full ROM Comment:: Numerous bruises Skin: Present intact; Absent erythema Neuro: Present Grossly Intact, alert, awake and moves all extremities Assessment and Plan *Assessment and plan (1) Weakness generalized: Status: Acute Category: Medical Code(s): R53.1 - Weakness (2) Chronic anemia: Status: Acute Category: Medical Code(s): D64.9 - Anemia, unspecified (3) Hyponatremia: Status: Acute Category: Medical Code(s): E87.1 - Hypo-osmolality and hyponatremia (4) Transaminitis: Status: Acute Category: Medical Code(s): R74.01 - Elevation o
[2022-12-31 20:00] VITALS: BP 138/70; PULSE 96; RESP 18; TEMP 37.5; O2SAT 96
[2023-01-01 04:00] VITALS: BP 133/55; PULSE 90; RESP 18; TEMP 37.3; O2SAT 95; BMI 27.4
--- NOTE | 2023-01-01 05:24 | PC.NURSE ---
Patient has slept most of the night. No issues were stated by the patient.
[2023-01-01 07:27] VITALS: BP 148/75; PULSE 62; RESP 18; TEMP 36.8; O2SAT 95
[2023-01-01 08:00] VITALS: O2SAT 95
[2023-01-01 08:02] LABS: Basophils % 0.1 % (0.1-2.0); Eosinophils # 0.1 K/mm3 (0.0-0.4); Eosinophils % 2.8 % (0.1-12.0); Hematocrit 34.8 % (42.0-52.0); Lymphocytes # 0.2 K/mm3 (0.7-4.5); Lymphocytes % 4.9 % (10-50); Mean Corpuscular HGB Conc 31.7 g/dL (31.8-35.4); Mean Corpuscular Hemoglobin 31.4 pg (27.0-31.2); Mean Corpuscular Volume 99.1 fl (80-94); Mean Platelet Volume 9.4 fl (7.4-10.4); Monocytes # 0.1 K/mm3 (0.1-1.0); Monocytes % 2.8 % (1.7-9.3); Neutrophils # 3.5 K/mm3 (1.8-7.8); Neutrophils % 89.4 % (37.0-80.0); Platelet Count 93 K/mm3 (142-424); Red Blood Count 3.51 M/mm3 (4.60-6.20); Red Cell Distribution Width 14.4 % (11.5-17.5); White Blood Count 3.9 K/mm3 (4.8-10.8)
[2023-01-01 08:03] LABS: MANUAL DIFFERENTIAL MANUAL DIFFERENTIAL (MANUAL DIFF)
[2023-01-01 08:05] LABS: Chloride 97 mmol/L (98-107); Potassium 4.2 mmoL/L (3.5-5.1); Sodium 130 mmol/L (136-145)
[2023-01-01 08:08] LABS: Alanine Aminotransferase 196 U/L (12-78); Albumin Level 2.6 g/dl (3.5-5.0); Alkaline Phosphatase 69 U/L (38-126); Anion Gap 12.2 mEq/L (5-15); Bilirubin,Total 0.9 mg/dl (0.2-1.3); Blood Urea Nitrogen 10 mg/dl (9-20); Calcium 7.9 mg/dl (8.4-10.2); Carbon Dioxide 25 mmol/L (22.0-30.0); Creatinine Clearance Estimated 173 mL/min (50-200); Estimated Glomerular Filt Rate 140 ml/min (>60); GFR (African American) 170 ML/MIN (>60); Globulin 2.5 g/dL (1.3-3.2); Glucose 93 mg/dl (74-100); Magnesium 1.6 mg/dl (1.6-2.3); Total Protein,Serum 5.1 g/dl (6.3-8.2)
[2023-01-01 08:17] LABS: Aspartate Amino Transferase 1470 U/L (17-59)
[2023-01-01 08:43] LABS: Eosinophils % 2 % (0-3); Lymphocytes % 6 % (10-50); Macrocytosis 1+; Monocytes % 6 % (2-9); Neutrophils % 86 % (42-76); Total Cells Counted 50
[2023-01-01 08:44] LABS: Platelet Estimate Slight Decrease
[2023-01-01 11:12] VITALS: BP 143/85; PULSE 65; RESP 18; TEMP 36.6; O2SAT 93
--- NOTE | 2023-01-01 11:24 | EXP.ACUTE.PN ---
Subjective *Date: 01/01/23 *Time: 12:14 Interval history: Patient pleasant on morning exam. Interactive and answering questions appropriately. States he is just been feeling weak. No chest pain or nausea. Stable on room air. Tolerating p.o. intake. Medical Exam Vital signs and Labs for Last 24 Hours: Vital Signs Temp Pulse Resp BP Pulse Ox 01/01/23 11:12 97.9 F 65 18 143/85 H 93 L 01/01/23 08:00 95 01/01/23 07:27 98.3 F 62 18 148/75 H 95 01/01/23 04:00 99.1 F 90 18 133/55 L 95 12/31/22 20:00 99.5 F 96 H 18 138/70 96 12/31/22 16:00 99.8 F H 101 H 18 140/75 94 L Intake and Output 12/31/22 01/01/23 01/01/23 23:59 07:59 15:59 Intake Total 480 / 1440 940 / 940 Output Total 550 / 900 125 / 475 350 / 475 Balance -70 / 540 815 / 465 -350 / 465 Intake: Intake, Oral Amount 480 / 1440 940 / 940 Output: Output, Urine Amount 550 / 900 125 / 475 350 / 475 Other: Number of Unmeasured Voids 0 1 1 Weight 87.09 kg Patient Weight 01/01/23 23:59 Weight 87.09 kg Laboratory Results - last 24 hr 01/01/23 07:21: WBC 3.9 L, RBC 3.51 L, Hgb 11.0 L, Hct 34.8 L, MCV 99.1 H, MCH 31.4 H, MCHC 31.7 L, RDW 14.4, Plt Count 93 L, MPV 9.4, Neut % (Auto) 89.4 H, Lymph % (Auto) 4.9 L, [place] % (Auto) 2.8, Eos % (Auto) 2.8, Baso % (Auto) 0.1, Neut # (Auto) 3.5, Lymph # (Auto) 0.2 L, [place] # (Auto) 0.1, Eos # (Auto) 0.1, Baso # (Auto) 0.0, Total Counted 50, Neutrophils % (Manual) 86 H, Lymphocytes % (Manual) 6 L, Monocytes % (Manual) 6, Eosinophils % (Manual) 2, Platelet Estimate Slight decrease, Macrocytosis 1+, Sodium 130 L, Potassium 4.2, Chloride 97 L, Carbon Dioxide 25, Anion Gap 12.2, BUN 10, Creatinine 0.60 L, Estimated Creat Clear 173, Estimated GFR 140, Est GFR ( Amer) 170, Glucose 93, Calcium 7.9 L, Magnesium 1.6, Total Bilirubin 0.9, AST 1470 H* D, ALT 196 H, Alkaline Phosphatase 69, Total Protein 5.1 L, Albumin 2.6 L, Globulin 2.5, Albumin/Globulin Ratio 1.0 L I & O for Labs for Last 24 Hours: Intake & Output 12/29/22 12/30/22 12/31/22 01/01/23 23:59 23:59 23:59 23:59 Intake Total 1440 / 1440 940 / 940 Output Total 100 / 100 900 / 900 475 / 475 Balance -100 / -100 540 / 540 465 / 465 Weight 86.863 kg 86.86 kg 87.09 kg Constitutional: Present no acute distress, average body habitus and chronically ill appearing Head: Present atraumatic and normocephalic Comment:: Poor dentition, numerous caries Neck: Present normal inspection Respiratory: Present normal respiratory effort; Absent rhonchi, wheezes or crackles Cardiac: Present Reg Rate and Rhythm GI: Present soft, distention and normal bowel sounds; Absent tenderness Extremities: Present normal inspection and full ROM Comment:: Numerous bruises Skin: Present intact; Absent erythema Neuro: Present Grossly Intact, alert, awake and moves all extremities Assessment and Plan *Assessment and plan (1) Weakness generalized: Status: Acute Category: Medical Code(s): R53.1 - Weakness (2) Chronic anemia: Status: Acute Category: Medical Code(s): D64.9 - Anemia, unspecified (3) Hyponatremia: Status: Acute Category: Medical Code(s): E87.1 - Hypo-osmolality and hyponatremia (4) Transaminitis: Status: Acute Category: Medical Code(s): R74.01 - Elevation of levels of liver transaminase levels (5) Thrombocythemia: Status: Acute Category: Medical Code(s): D75.839 - Thrombocytosis, unspecified (6) Abnormal finding on liver function: Status: Acute Category: Medical Code(s): R94.5 - Abnormal results of liver function studies (7) Chronic liver disease and cirrhosis: Status: Acute Category: Medical Code(s): K74.60 - Unspecified cirrhosis of liver; K76.9 - Liver disease, unspecified (8) Schizophrenia: Status: Acute Qualifiers: Schizophrenia type: unspecified Qualified Co
--- NOTE | 2023-01-01 14:35 | PC.NURSE ---
pt refused scuds
[2023-01-01 15:10] VITALS: BP 131/66; PULSE 95; RESP 18; TEMP 36.9; O2SAT 97
--- NOTE | 2023-01-01 16:48 | PC.NURSE ---
pt alert and oriented. ls cta. abdomen soft, nontender, bs active. pt has rested most of this shift. Jaqueline PT attempted to work with patient today but patient only wanted to sit on the side of the bed. pt refused helped getting cleaned up today and stated he would prefer a male help him with his bath. pt to have male SRNA this evening. call light w/i reach, bed alarm in place.
--- NOTE | 2023-01-01 18:13 | PC.NURSE ---
pt had bowel movement in attends and had stool on his hand, pt in agreeance to getting washed up. assisted SRNA in giving patient a bed bath.
[2023-01-01 20:00] VITALS: BP 129/61; PULSE 91; RESP 20; TEMP 36.8; O2SAT 96
[2023-01-02 04:00] VITALS: BP 130/56; PULSE 73; RESP 18; TEMP 38.2; O2SAT 96; BMI 29.0
[2023-01-02 05:18] VITALS: TEMP 37
--- NOTE | 2023-01-02 05:19 | PC.NURSE ---
Patient has rested most of the night. RN was told by POLICE JUDGE that patient was running a temp at 4:00 round of 100.8. RN went and recheck temp was 98.6. No other issue were noted by patient pensionholder information clerk
[2023-01-02 05:59] LABS: Basophils % 0.1 % (0.1-2.0); Eosinophils # 0.1 K/mm3 (0.0-0.4); Eosinophils % 2.3 % (0.1-12.0); Hematocrit 33.5 % (42.0-52.0); Lymphocytes # 0.3 K/mm3 (0.7-4.5); Lymphocytes % 5.9 % (10-50); Mean Corpuscular HGB Conc 32.7 g/dL (31.8-35.4); Mean Corpuscular Hemoglobin 32.4 pg (27.0-31.2); Mean Corpuscular Volume 98.9 fl (80-94); Mean Platelet Volume 9.4 fl (7.4-10.4); Monocytes # 0.2 K/mm3 (0.1-1.0); Monocytes % 3.8 % (1.7-9.3); Neutrophils # 3.7 K/mm3 (1.8-7.8); Neutrophils % 87.8 % (37.0-80.0); Platelet Count 98 K/mm3 (142-424); Red Blood Count 3.39 M/mm3 (4.60-6.20); Red Cell Distribution Width 14.6 % (11.5-17.5); White Blood Count 4.2 K/mm3 (4.8-10.8)
[2023-01-02 06:03] LABS: MANUAL DIFFERENTIAL MANUAL DIFFERENTIAL (MANUAL DIFF)
[2023-01-02 06:07] LABS: Alanine Aminotransferase 184 U/L (12-78); Albumin Level 2.5 g/dl (3.5-5.0); Albumin/Globulin Ratio 0.9 (1.1-1.8); Alkaline Phosphatase 75 U/L (38-126); Anion Gap 11.2 mEq/L (5-15); Blood Urea Nitrogen 10 mg/dl (9-20); Calcium 7.7 mg/dl (8.4-10.2); Carbon Dioxide 27 mmol/L (22.0-30.0); Chloride 97 mmol/L (98-107); Creatinine Clearance Estimated 183 mL/min (50-200); Estimated Glomerular Filt Rate 140 ml/min (>60); GFR (African American) 170 ML/MIN (>60); Globulin 2.7 g/dL (1.3-3.2); Glucose 84 mg/dl (74-100); INR 1.16 (0.9-1.1); Potassium 4.2 mmoL/L (3.5-5.1); Prothrombin Time 12.4 seconds (10.1-12.5); Sodium 131 mmol/L (136-145); Total Protein,Serum 5.2 g/dl (6.3-8.2)
[2023-01-02 06:21] LABS: Aspartate Amino Transferase 1204 U/L (17-59)
[2023-01-02 06:28] LABS: Magnesium 1.6 mg/dl (1.6-2.3)
[2023-01-02 06:53] LABS: Lymphocytes % 6 % (10-50); Monocytes % 2 % (2-9); Neutrophils % 92 % (42-76); Platelet Estimate Slight Decrease; Total Cells Counted 100
[2023-01-02 07:42] VITALS: BP 130/71; PULSE 97; RESP 18; TEMP 38.3; O2SAT 97
--- NOTE | 2023-01-02 09:52 | EXP.ACUTE.PN ---
Subjective *Date: 01/02/23 *Time: 09:52 Interval history: Patient complains of feeling weak this morning. Afebrile and hemodynamically stable. Eating well. No nausea or vomiting. Had a bowel movement. Continuing lactulose. Medical Exam Vital signs and Labs for Last 24 Hours: Vital Signs Temp Pulse Resp BP Pulse Ox 01/02/23 07:42 100.9 F H 97 H 18 130/71 97 01/02/23 05:18 98.6 F 01/02/23 04:00 100.8 F H 73 18 130/56 L 96 01/01/23 20:00 98.3 F 91 H 20 129/61 96 01/01/23 15:10 98.5 F 95 H 18 131/66 97 01/01/23 11:12 97.9 F 65 18 143/85 H 93 L Intake and Output 01/01/23 01/02/23 01/02/23 23:59 07:59 15:59 Intake Total 240 / 1780 240 / 240 Output Total 250 / 725 350 / 350 Balance -1054 -110 / -110 Intake: Intake, Oral Amount 240 / 1780 240 / 240 Output: Output, Urine Amount 250 / 725 350 / 350 Other: Number of Unmeasured Voids 1 Number of Bowel Movements 1 Weight 91.824 kg Patient Weight 01/02/23 23:59 Weight 91.824 kg Laboratory Results - last 24 hr 01/02/23 05:32: WBC 4.2 L, RBC 3.39 L, Hgb 11.0 L, Hct 33.5 L, MCV 98.9 H, MCH 32.4 H, MCHC 32.7, RDW 14.6, Plt Count 98 L, MPV 9.4, Neut % (Auto) 87.8 H, Lymph % (Auto) 5.9 L, [place] % (Auto) 3.8, Eos % (Auto) 2.3, Baso % (Auto) 0.1, Neut # (Auto) 3.7, Lymph # (Auto) 0.3 L, [place] # (Auto) 0.2, Eos # (Auto) 0.1, Baso # (Auto) 0.0, Total Counted 100, Neutrophils % (Manual) 92 H, Lymphocytes % (Manual) 6 L, Monocytes % (Manual) 2, Platelet Estimate Slight decrease, PT 12.4, INR 1.16 H, Sodium 131 L, Potassium 4.2, Chloride 97 L, Carbon Dioxide 27, Anion Gap 11.2, BUN 10, Creatinine 0.60 L, Estimated Creat Clear 183, Estimated GFR 140, Est GFR ( Amer) 170, Glucose 84, Calcium 7.7 L, Magnesium 1.6, Total Bilirubin 1.0, AST 1204 H*, ALT 184 H, Alkaline Phosphatase 75, Total Protein 5.2 L, Albumin 2.5 L, Globulin 2.7, Albumin/Globulin Ratio 0.9 L I & O for Labs for Last 24 Hours: Intake & Output 12/30/22 12/31/22 01/01/23 01/02/23 23:59 23:59 23:59 23:59 Intake Total 1440 / 1440 1780 / 1780 240 / 240 Output Total 100 / 100 900 / 900 725 / 725 350 / 350 Balance -100 / -100 540 / 540 1055 / 1055 -110 / -110 Weight 86.863 kg 86.86 kg 87.09 kg 91.824 kg Microbiology Reports for the Last 24 Hours: Microbiology 12/30/22 15:35 Blood Blood Culture - Preliminary NO GROWTH AFTER 48 HOURS 12/30/22 15:05 Blood Blood Culture - Preliminary NO GROWTH AFTER 48 HOURS Constitutional: Present no acute distress, average body habitus and chronically ill appearing Head: Present atraumatic and normocephalic Comment:: Poor dentition, numerous caries Neck: Present normal inspection Respiratory: Present normal respiratory effort; Absent rhonchi, wheezes or crackles Cardiac: Present Reg Rate and Rhythm GI: Present soft, distention and normal bowel sounds; Absent tenderness Extremities: Present normal inspection and full ROM Comment:: Numerous bruises Skin: Present intact; Absent erythema Neuro: Present Grossly Intact, alert, awake and moves all extremities Assessment and Plan *Assessment and plan (1) Weakness generalized: Status: Acute Category: Medical Code(s): R53.1 - Weakness (2) Chronic anemia: Status: Acute Category: Medical Code(s): D64.9 - Anemia, unspecified (3) Hyponatremia: Status: Acute Category: Medical Code(s): E87.1 - Hypo-osmolality and hyponatremia (4) Transaminitis: Status: Acute Category: Medical Code(s): R74.01 - Elevation of levels of liver transaminase levels (5) Thrombocythemia: Status: Acute Category: Medical Code(s): D75.839 - Thrombocytosis, unspecified (6) Abnormal finding on liver function: Status: Acute Category: Medical Code(s): R94.5 - Abnormal results of liver function studies (7) Chroni
[2023-01-02 11:20] VITALS: TEMP 37.3
[2023-01-02 15:19] VITALS: BP 139/72; PULSE 93; RESP 18; TEMP 37; O2SAT 96
[2023-01-02 20:00] VITALS: BP 125/53; PULSE 96; RESP 20; TEMP 36.8; O2SAT 95
[2023-01-03 04:00] VITALS: BP 131/65; PULSE 94; RESP 20; TEMP 37.1; O2SAT 98; BMI 28.8
--- NOTE | 2023-01-03 05:06 | PC.NURSE ---
Pt has rested through the night. Has had no complaints. Did have a BM tonight
[2023-01-03 06:24] LABS: Alanine Aminotransferase 171 U/L (12-78); Albumin Level 2.3 g/dl (3.5-5.0); Albumin/Globulin Ratio 0.9 (1.1-1.8); Alkaline Phosphatase 66 U/L (38-126); Anion Gap 5.8 mEq/L (5-15); Bilirubin,Total 0.9 mg/dl (0.2-1.3); Blood Urea Nitrogen 9 mg/dl (9-20); Calcium 7.6 mg/dl (8.4-10.2); Carbon Dioxide 29 mmol/L (22.0-30.0); Chloride 100 mmol/L (98-107); Creatinine Clearance Estimated 182 mL/min (50-200); Estimated Glomerular Filt Rate 140 ml/min (>60); GFR (African American) 170 ML/MIN (>60); Globulin 2.7 g/dL (1.3-3.2); Glucose 106 mg/dl (74-100); Potassium 3.8 mmoL/L (3.5-5.1); Sodium 131 mmol/L (136-145)
[2023-01-03 06:30] LABS: Aspartate Amino Transferase 973 U/L (17-59)
[2023-01-03 06:37] LABS: Basophils % 0.2 % (0.1-2.0); Eosinophils % 1.1 % (0.1-12.0); Hematocrit 32.3 % (42.0-52.0); Hemoglobin 10.6 g/dL (14.1-18.0); Lymphocytes # 0.2 K/mm3 (0.7-4.5); Magnesium 1.9 mg/dl (1.6-2.3); Mean Corpuscular HGB Conc 32.9 g/dL (31.8-35.4); Mean Corpuscular Hemoglobin 32.1 pg (27.0-31.2); Mean Corpuscular Volume 97.7 fl (80-94); Mean Platelet Volume 9.5 fl (7.4-10.4); Monocytes # 0.1 K/mm3 (0.1-1.0); Monocytes % 3.2 % (1.7-9.3); Neutrophils # 3.4 K/mm3 (1.8-7.8); Neutrophils % 90.5 % (37.0-80.0); Platelet Count 82 K/mm3 (142-424); Red Blood Count 3.31 M/mm3 (4.60-6.20); Red Cell Distribution Width 14.5 % (11.5-17.5); White Blood Count 3.8 K/mm3 (4.8-10.8)
[2023-01-03 06:44] LABS: MANUAL DIFFERENTIAL MANUAL DIFFERENTIAL (MANUAL DIFF)
[2023-01-03 07:14] LABS: Lymphocytes % 3 % (10-50); Monocytes % 4 % (2-9); Neutrophils % 93 % (42-76); Platelet Estimate Moderate Decrease; RBC Morphology Normal; Total Cells Counted 100
--- NOTE | 2023-01-03 07:22 | EXP.DC.SUM ---
General Admission date:: 12/30/22 Discharge date: 01/03/23 HPI HPI HPI: This is a 52 yo male, with PMHx of cirrhosis and schizophrenia, hypothyroidism who is a resident of assisted living facility [facility], the patient presented to the emergency department via ambulance complaining of a 3-week history of progressively worsening weakness. He states that over the last 2 days the weakness has worsen. He denies any vomiting, nausea, diarrhea, fever. He also denies cough. He states that he has cirrhosis. He also stated he is being fallen at the facility. Patient with multiple bruises. At the ER finding were consistent with abnormal liver function. chest X-ray negative. Discussed with the ER. Agreed for [facility] for further work-up and management. Hospital Course Hospital Course Hospital Course: This is a 52 yo male, with PMHx of cirrhosis and schizophrenia, hypothyroidism who is a resident of assisted living facility [facility], the patient presented to the emergency department via ambulance complaining of a 3-week history of progressively worsening weakness. Therapy recommends placement. Hemodynamically stable, liver enzymes showing some improvement but still elevated. Has been graciously updated by [facility] for further rehab. Problems addressed as follows: -Generalized weakness: -Failure to thrive: -Recurring falls Admitted for therapy evaluation and monitoring. PT and OT worked with him daily. Patient has multiple etiologies for his failure to thrive and weakness. These include cirrhosis, schizophrenia, medication side effects, chronic anemia. Fall precautions during admission. Stable at this time for discharge to rehab. -Chronic anemia, mild. Remained stable during admission. No active signs of bleeding. Likely secondary to chronic disease. -Hyponatremia and thrombocytopenia, transaminitis: MELD score 17, secondary to cirrhosis of the liver. Sodium low during admission, stable in the low 130s. Held on anticoagulation given his bruising. His AST gradually improved to approximately 900 on day of discharge. Recommend repeat labs for him in 1 week. Patient will need CBC and CMP. Caution with medications that might be hepatotoxic. -Cirrhosis of the liver: Abdominal ultrasound with cirrhosis and gallstones. Common bile duct normal in size. Had not had a bowel movement for several days prior to admission. Ammonia was elevated. Started on lactulose scheduled, having significant stools. Goal 1-3 soft stools a day. Recommend lactulose at least once daily. -Schizophrenia: Continue home medication: Wellbutrin 150 mg extended release daily, lithium 300 mg twice daily, Risperdal was decreased to 2 mg nightly from previous dose of 6 mg. Continue Zoloft 200 mg nightly. Paliperidone was held during admission due to it not being on her formulary. Recommend resuming at discharge. Would benefit from psych evaluation to assist with medication management while admitted to nursing facility. Stable for discharge to intermediate care facility for further rehab and management. Patient has been pleasant and cooperative during hospitalization. Exam Data for Last 24 hours Vital signs and Labs for Last 24 Hours: Temp Pulse Resp BP Pulse Ox 98.7 F 94 H 20 131/65 98 01/03/23 04:00 01/03/23 04:00 01/03/23 04:00 01/03/23 04:00 01/03/23 04:00 Laboratory Results - last 24 hr 01/03/23 05:23: WBC 3.8 L, RBC 3.31 L, Hgb 10.6 L, Hct 32.3 L, MCV 97.7 H, MCH 32.1 H, MCHC 32.9, RDW 14.5, Plt Count 82 L, MPV 9.5, Neut % (Auto) 90.5 H, Lymph % (Auto) 5.0 L, [place] % (Auto) 3.2, Eos % (Auto) 1.1, Baso % (Auto) 0.2, Neut # (Auto) 3.4, Lymph # (Auto) 0.2 L, [place] # (Auto) 0.1, Eos # (Auto) 0.0, Baso # (Auto) 0.0, Total Counted 100, Neutrophils % (Manual) 93 H, Lymphocytes % (Manual) 3 L, Monocytes % (Manual) 4, Platelet Estimate Moderate decrease, RBC Morphology Normal, Sodium 131 L, Potassium 3.8, Chloride 100, Carbon Dioxide 29, Anion Gap
[2023-01-03 08:00] VITALS: BP 127/63; PULSE 77; RESP 20; TEMP 36.8; O2SAT 96
--- NOTE | 2023-01-03 12:31 | PC.NURSE ---
Called Wilbur Lopez for report, no answer.
--- NOTE | 2023-01-03 13:10 | PC.NURSE ---
Called report to KEANU Lopez at [facility].
== END 2023-01-03 15:14 ==
LOC: ER 19:17 → 2ND 20:05
PROVIDERS: Nurse Practitioner Family; Admitting Provider Internal Medicine Adolescent Medicine; Emergency Provider Emergency Medicine; Visit Provider Internal Medicine Adolescent Medicine
DX: R53.1 Weakness (principal); D64.9 Anemia, unspecified; E87.1 Hypo-osmolality and hyponatremia; R74.01 Elevation of levels of liver transaminase levels; D75.839 Thrombocytosis, unspecified; R94.5 Abnormal results of liver function studies; F20.9 Schizophrenia, unspecified; R29.6 Repeated falls; Z79.899 Other long term (current) drug therapy; K74.60 Unspecified cirrhosis of liver
CPT/HCPCS: 36415; 71045; 76705; 80053; 80061; 80305; 81001; 82140; 83605; 83735; 85007; 85025; 85610; 87040; 87635; 87636; 93306; 97110; 97163; 97165; 97530; 99285; C9803; G0378; J3475; U0003; U0005